=== PATIENT | female | born 1965 | race Caucasian/White ===

== ENCOUNTER 2016-10-07 11:39 | Emergency (ER) | payer BC ==
[2016-10-07] MEDS ORDERED: Aspirin 81 MG Tab.Chew PO ONE (11:50)
[2016-10-07] MEDS ORDERED: Sodium Chloride 0.9% 10 ML Syringe FLUSH PRN (11:50)
--- NOTE | 2016-10-07 12:28 | EDM.PDOC ---
ED HPI GENERAL MEDICAL PROBLEM - General Chief Complaint: Chest Pain Stated Complaint: CHEST PAIN Time Seen by Provider: 10/07/16 11:43 Source of Information: Reports: Patient History Limitations: Reports: No Limitations - History of Present Illness INITIAL COMMENTS - FREE TEXT/NARRATIVE: The patient presents with left upper chest pain. This started about 3 days ago. It is constant and like pressure. It is made worse by palpation. It radiates into her arm and into her neck and jaw. She has no shortness of breath with it. She has no fever, chills, cough, congestion or runny nose. She has no history of heart problems. She has no history of DVT or PE. She has no edema or pain in her legs. She has no abdominal pain, nausea, vomiting or diaphoresis. She does not smoke. She has no diabetes, HTN or hypercholesterolemia. Onset: Gradual Duration: Day(s): (3) Location: Reports: Chest Quality: Reports: Pressure Severity: Moderate Improves with: Reports: None Worsens with: Reports: None Associated Symptoms: Reports: Chest Pain. 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: - Past Surgical History Female Surgical History: Reports: Hysterectomy Neurological Surgical History: Reports: C-Spine Musculoskeletal Surgical History: Reports: Arthroscopic Knee Social & Family History - Tobacco Use Smoking Status *Q: Never Smoker - Caffeine Use Caffeine Use: Reports: None - Recreational Drug Use Recreational Drug Use: No ED ROS GENERAL - Review of Systems Review Of Systems: See Below Constitutional: Reports: No Symptoms HEENT: Reports: No Symptoms Respiratory: Reports: No Symptoms Cardiovascular: Reports: Chest Pain Endocrine: Reports: No Symptoms GI/Abdominal: Reports: No Symptoms : Reports: No Symptoms Musculoskeletal: Reports: No Symptoms Skin: Reports: No Symptoms ED EXAM, GENERAL - Physical Exam Exam: See Below Exam Limited By: No Limitations General Appearance: Alert, No Apparent Distress Ears: Normal External Exam Nose: Normal Inspection Head: Atraumatic, Normocephalic Neck: Normal Inspection Respiratory/Chest: No Respiratory Distress, Lungs Clear, Normal Breath Sounds Cardiovascular: Regular Rate, Rhythm, No Edema, No Murmur GI/Abdominal: Soft, Non-Tender, No Organomegaly, No Mass Back Exam: Normal Inspection Extremities: Normal Inspection EKG INTERPRETATION EKG Date: 10/07/16 Time: 11:44 Rhythm: NSR Rate (Beats/Min): 66 [place]: Normal P-Wave: Present QRS: Normal ST-T: Normal QT: Normal Course - Vital Signs Last Recorded V/S: Last Vital Signs Temp 98.4 F 10/07/16 11:42 Pulse 83 10/07/16 11:42 Resp 15 10/07/16 11:42 BP 169/93 H 10/07/16 11:42 Pulse Ox 98 10/07/16 11:42 - Orders/Labs/Meds Orders: Active Orders 24 hr Category Date Time Status Cardiac Monitoring [RC] . DIRECTED Care 10/07/16 11:50 Active EKG Documentation Completion [RC] STAT Care 10/07/16 11:51 Active Oxygen Therapy [RC] PRN Care 10/07/16 11:50 Active Peripheral IV Care [RC] . DIRECTED Care 10/07/16 11:51 Active Chest 2V [CR] Stat Exams 10/07/16 11:51 Taken Sodium Chloride 0.9% [Saline Flush] Med 10/07/16 11:50 Active 10 ml FLUSH ASDIRECTED PRN Peripheral IV Insertion Adult [OM.PC] Stat Oth 10/07/16 11:50 Ordered Medication Orders Sodium Chloride (Saline Flush) 10 ml FLUSH ASDIRECTED PRN PRN Reason: Keep Vein Open Last Admin: 10/07/16 11:58 Dose: 10 ml Labs: Laboratory Tests 10/07/16 10/07/16 10/07/16 Range/Units 11:50 11:50 11:50 WBC 8.22 (3.98-10.04) K/mm3 RBC 4.47 (3.98-5.22) M/mm3 Hgb 13.1 (11.2-15.7) gm/L Hct 39.3 (34.1-44.9) % MCV 87.9 (79.4-94.8) fl MCH 29.3 (25.6-32.2) pg MCHC 33.3 (32.2-35.5) g/dl RDW Std Deviation 44.4 (36.4-46.3) fL Plt Count 364 (182-369) K/mm3 MPV 9.8 (9.4-12.3) fl Neut % (Auto) 55.7 (34.0-71.1) % Lymph % (Auto) 31.5 (19.3-51.7) % [place] % (Auto) 8.0 (4.7-12.5) % Eos % (Auto) 4.1 (0.7-5.8) Baso % (Auto) 0.5 (0.1-1.2) % Neut # (Auto) 4.57 (1.56-6.13) K/mm3 Lymph # (Auto) 2.59 (1.18-3.74) K/mm3 [place] # (Auto) 0.66 H (0.24-0.36) K/mm3 Eos # (Auto) 0.34 (0.04-0.36) K/mm3 Baso # (Auto) 0.04 (0.01-0.08) K/mm3 D-Dimer, Quantitative 0.36 (0.19-0.59) mg/L Sodium 139 (136-145) mEq/L Potassium 3.9 (3.5-5.1) mEq/L Chloride 103 (98-107) mEq/L Carbon Dioxide 27 (21-32) mEq/L Anion Gap 12.9 (5-15) BUN 11 (7-18) mg/dL Creatinine 0.9 (0.55-1.02) mg/dL Est Cr Clr Drug Dosing 62.42 mL/min Estimated GFR (MDRD) > 60 (>60) mL/min BUN/Creatinine Ratio 12.2 L (14-18) Glucose 88 (74-106) mg/dL Calcium 9.1 (8.5-10.1) mg/dL Total Bilirubin 0.4 (0.2-1.0) mg/dL AST 18 (15-37) U/L ALT 24 (14-59) U/L Alkaline Phosphatase 85 (46-116) U/L Troponin I < 0.017 (0.00-0.056) ng/mL Total Protein 8.2 (6.4-8.2) g/dl Albumin 4.0 (3.4-5.0) g/dl Globulin 4.2 gm/dL Albumin/Globulin Ratio 1.0 (1-2) Meds: Medications Generic Name Dose Route Start Last Admin Trade Name Tenisha PRN Reason Stop Dose Admin Sodium Chloride 10 ml 10/07/16 11:50 10/07/16 11:58 Saline Flush FLUSH 10 ml ASDIRECTED PRN Administration Keep Vein Open Discontinued Medications Generic Name Dose Route Start Last Admin Trade Name Tenisha PRN Reason Stop Dose Admin Aspirin 324 mg 10/07/16 11:50 10/07/16 12:00 Aspirin PO 10/07/16 11:51 324 mg ONETIME ONE Administration - Re-Assessments/Exams Free Text/Narrative Re-Assessment/Exam: 10/07/16 12:28 I ordered an IV saline lock, aspirin 324mg by mouth, labs, EKG, and CXR. Her EKG shows a NSR with no acute changes. 10/07/16 13:22 Her CBC and CMP look good. Her troponin is negative. Her CXR shows nothing acute. She feels better. I feel this is chest wall pain. I will get her on some naproxyn. Departure - Departure Time of Disposition: 13:25 Disposition: Home, Self-Care 01 Condition: Good Clinical Impression: Chest wall pain Prescriptions: Naproxen [Naprosyn] 500 mg PO Q12HR #20 tablet Referrals: Gris Doshi [employer] HOUSE SUPERVISOR [Primary Care Provider] - 1 Week Forms: ED Department Discharge Additional Instructions: Take the naprosyn every 12 hours as needed for pain. Please return if you are worse. - My Orders Last 24 Hours: My Active Orders 10/07/16 11:50 Cardiac Monitoring [RC] . DIRECTED Oxygen Therapy [RC] PRN Sodium Chloride 0.9% [Saline Flush] 10 ml FLUSH ASDIRECTED PRN Peripheral IV Insertion Adult [OM.PC] Stat 10/07/16 11:51 EKG Documentation Completion [RC] STAT Peripheral IV Care [RC] . DIRECTED Chest 2V [CR] Stat - Assessment/Plan Last 24 Hours: My Active Orders 10/07/16 11:50 Cardiac Monitoring [RC] . DIRECTED Oxygen Therapy [RC] PRN Sodium Chloride 0.9% [Saline Flush] 10 ml FLUSH ASDIRECTED PRN Peripheral IV Insertion Adult [OM.PC] Stat 10/07/16 11:51 EKG Documentation Completion [RC] STAT Peripheral IV Care [RC] . DIRECTED Chest 2V [CR] Stat
[2016-10-07 13:42] VITALS: BP 150/70
--- NOTE | 2016-10-09 10:27 | CR ---
Chest: 2 views of the chest were obtained. Comparison: No previous chest x-ray. Heart size and mediastinum are normal. Lungs are clear. Previous lower cervical spine surgery is noted. Impression: 1. Incidental findings. Nothing acute is seen on 2 view chest x-ray. Diagnostic code #2
== END 2016-10-07 13:40 | disposition home or self-care (01) ==
LOC: JD.ED 11:39
DX: R07.89 Other chest pain (principal); Z90.710 Acquired absence of both cervix and uterus; Z98.890 Other specified postprocedural states
CPT/HCPCS: 36415; 71020; 80053; 84484; 85025; 85379; 93005; 99285; A9270; J7050; 99284